=== PATIENT | female | born 1990 | race Caucasian/White ===

== ENCOUNTER 2020-03-20 02:45 | Emergency (ER) | payer MEDICAID ==
[~2020-03-20] VITALS: Ht 170.2 cm; Wt 68.0 kg
[2020-03-20 02:55] VITALS: BP 142/90
== END 2020-03-20 04:08 | disposition left against medical advice (07) ==
LOC: ER 02:47
DX: M25.511 Pain in right shoulder (principal); Z53.21 Procedure and treatment not carried out due to patient leaving prior to being seen by health care provider
CPT/HCPCS: 73030

== ENCOUNTER → 2022-05-01 | Outpatient (CLI) | payer MEDICAID ==
[2022-05-01 11:30] LABS: Basophils # (auto) 0 10 ^3/uL (0-0.2); Basophils % (auto) 0.4 % (0.0-2.0); Eosinophils # (auto) 0.1 10 ^3/uL (0-0.8); Eosinophils % (auto) 1.3 % (0.0-7.0); Hematocrit 38.7 % (36.0-46.0); Hemoglobin 13.2 g/dL (12.2-16.2); Lymphocytes # (auto) 1.5 10 ^3/uL (0.4-5.4); Lymphocytes % (auto) 20.3 % (10.0-50.0); Mean Corpuscular Volume 93.9 fL (80.0-100.0); Monocytes # (auto) 0.5 10 ^3/uL (0-1.3); Monocytes % (auto) 6.8 % (0.0-12.0); Neutrophils # (auto) 5.3 10 ^3/uL (1.6-8.6); Neutrophils % (auto) 71.2 % (37.0-80.0); Nucleated Red Blood Cells % 0.1 %; Red Blood Cells 4.12 10^6/uL (4.0-5.20); White Blood Cell 7.4 10^3/uL (4.4-10.8)
[2022-05-01 12:26] LABS: Alcohol, Urine < 3.0 mg/dL (0-10); Amphetamine Screen, Urine NEGATIVE (NEGATIVE); Barbiturate Scree,Urine NEGATIVE (NEGATIVE); Benzodiazephine Screen, Urine NEGATIVE (NEGATIVE); Cannabinoid Screen, Urine NEGATIVE (NEGATIVE); Cocaine Screen, Urine NEGATIVE (NEGATIVE); Opiate Scree,Urine NEGATIVE (NEGATIVE); Phencyclidine Screen, Urine NEGATIVE (NEGATIVE)
[2022-05-02 08:06] LABS: RPR Non Reactive (Non Reactive)
== END | disposition home or self-care (01) ==
LOC: LAB 10:55
PROVIDERS: ATTEND Obstetrics & Gynecology
DX: Z31.430 Encounter of female for testing for genetic disease carrier status for procreative management (principal); Z34.80 Encounter for supervision of other normal pregnancy, unspecified trimester; N39.0 Urinary tract infection, site not specified
CPT/HCPCS: 36415; 80307; 83036; 84112; 84144; 84702; 85025; 86592; 86703; 86762; 86765; 86850; 86900; 86901; 87086; 87088; 87186; 87340

== ENCOUNTER → 2022-09-03 | Outpatient (CLI) | payer MEDICAID ==
[2022-09-03 09:19] LABS: Basophils # (auto) 0 10 ^3/uL (0-0.2); Basophils % (auto) 0.3 % (0.0-2.0); Eosinophils # (auto) 0.2 10 ^3/uL (0-0.8); Eosinophils % (auto) 2.2 % (0.0-7.0); Hematocrit 36.6 % (36.0-46.0); Hemoglobin 12.2 g/dL (12.2-16.2); Lymphocytes # (auto) 2.3 10 ^3/uL (0.4-5.4); Lymphocytes % (auto) 27.7 % (10.0-50.0); Mean Corpuscular Hemoglobin 31.4 pg (28.0-32.0); Mean Corpuscular Hgb Conc. 33.4 g/dL (32.0-36.0); Monocytes # (auto) 0.7 10 ^3/uL (0-1.3); Monocytes % (auto) 8.1 % (0.0-12.0); Neutrophils # (auto) 5.1 10 ^3/uL (1.6-8.6); Neutrophils % (auto) 61.7 % (37.0-80.0); Red Blood Cells 3.89 10^6/uL (4.0-5.20); Red Cell Distribution Width 13.6 % (11.8-14.3); White Blood Cell 8.2 10^3/uL (4.4-10.8)
== END | disposition home or self-care (01) ==
LOC: LAB 09:06
PROVIDERS: ATTEND Obstetrics & Gynecology
DX: Z34.80 Encounter for supervision of other normal pregnancy, unspecified trimester (principal); Z3A.00 Weeks of gestation of pregnancy not specified
CPT/HCPCS: 36415; 82951; 85025

== ENCOUNTER → 2022-10-30 | Outpatient (CLI) | payer MEDICAID ==
[2022-10-30 11:47] LABS: Basophils # (auto) 0 10 ^3/uL (0-0.2); Basophils % (auto) 0.5 % (0.0-2.0); Eosinophils # (auto) 0.1 10 ^3/uL (0-0.8); Eosinophils % (auto) 1.4 % (0.0-7.0); Monocytes # (auto) 0.9 10 ^3/uL (0-1.3); Monocytes % (auto) 11.3 % (0.0-12.0); Neutrophils # (auto) 6.1 10 ^3/uL (1.6-8.6)
[2022-10-30 11:51] LABS: Hematocrit 39.1 % (36.0-46.0); Hemoglobin 13.2 g/dL (12.2-16.2); Mean Corpuscular Hemoglobin 31.6 pg (28.0-32.0); Mean Corpuscular Hgb Conc. 33.7 g/dL (32.0-36.0); Mean Corpuscular Volume 93.7 fL (80.0-100.0); Neutrophils % (auto) 74.8 % (37.0-80.0); Red Blood Cells 4.18 10^6/uL (4.0-5.20); Red Cell Distribution Width 13.5 % (11.8-14.3); White Blood Cell 8.1 10^3/uL (4.4-10.8)
[2022-10-31 08:07] LABS: RPR Non Reactive (Non Reactive)
== END | disposition home or self-care (01) ==
LOC: LAB 11:21
PROVIDERS: ATTEND Obstetrics & Gynecology
DX: Z34.80 Encounter for supervision of other normal pregnancy, unspecified trimester (principal); Z3A.00 Weeks of gestation of pregnancy not specified
CPT/HCPCS: 36415; 84112; 85025; 86592

== ENCOUNTER 2022-11-27 17:37 | Inpatient (IN) | payer MEDICAID ==
[~2022-11-27] VITALS: Ht 170.2 cm; Wt 96.6 kg
[2022-11-27] MEDS ORDERED: BUTORPHANOL TARTRATE 2 MG/1 ML VIAL IV PRN ×2 (18:30)
[2022-11-27] MEDS ORDERED: PROMETHAZINE HCL 25 MG/ML 1ML IV PRN (18:30)
[2022-11-27] MEDS ORDERED: LACTATED RINGER'S 1,000 ML IV SCH (18:30)
[2022-11-27] MEDS ORDERED: PHISODERM TOP SOLN 240ML BTL TOP PRN (18:30)
[2022-11-27] MEDS ORDERED: DERMOPLAST 60ML BOTTLE TOP PRN (18:30)
[2022-11-27] MEDS ORDERED: LIDOCAINE 2%HCL (LOCAL ANESTH.) INJ 20ML MDV IJ PRN (18:30)
[2022-11-27] MEDS ORDERED: LACT. RINGERS/OXYTOCIN 20UNITS 500 ML IV ONE ×2 (19:00→19:30)
[2022-11-27] MEDS: WITCH HAZEL-GLYCERIN PAD TOP PRN (19:06)
[2022-11-27 19:13] LABS: Basophils # (auto) 0 10 ^3/uL (0-0.2); Basophils % (auto) 0.1 % (0.0-2.0); Eosinophils # (auto) 0.1 10 ^3/uL (0-0.8); Eosinophils % (auto) 0.5 % (0.0-7.0); Hematocrit 38.3 % (36.0-46.0); Hemoglobin 13.1 g/dL (12.2-16.2); Lymphocytes # (auto) 1.2 10 ^3/uL (0.4-5.4); Lymphocytes % (auto) 8.6 % (10.0-50.0); Mean Corpuscular Hemoglobin 31.7 pg (28.0-32.0); Mean Corpuscular Hgb Conc. 34.3 g/dL (32.0-36.0); Mean Corpuscular Volume 92.5 fL (80.0-100.0); Monocytes # (auto) 0.9 10 ^3/uL (0-1.3); Monocytes % (auto) 6.4 % (0.0-12.0); Neutrophils # (auto) 11.8 10 ^3/uL (1.6-8.6); Neutrophils % (auto) 84.4 % (37.0-80.0); Red Blood Cells 4.15 10^6/uL (4.0-5.20); Red Cell Distribution Width 13.8 % (11.8-14.3)
[2022-11-27 19:27] LABS: INR 0.9 (0.9-1.15); Partial Thromboplastin Time 26.5 sec (24.6-33.4)
[2022-11-27 19:30] LABS: Albumin 2.7 g/dL (3.4-5.0); Calcium 8.7 mg/dL (8.5-10.1); Potassium 3.2 mmol/L (3.5-5.1)
[2022-11-27 19:33] LABS: BUN/Creatinine Ratio 18.9; Bilirubin, Total 0.3 mg/dL (0.2-1.0); Total Protein 6.2 g/dL (6.4-8.2)
[2022-11-27] MEDS ORDERED: ePHEDrine SULFATE 50 MG/ML AMP IV ONE (20:00)
[2022-11-27] MEDS ORDERED: NALOXONE HCL 0.4 MG/ML VIAL IV ONE (20:00)
[2022-11-27] MEDS ORDERED: fentaNYL CITRATE 100 MCG/2 ML VL IV ONE (20:00)
[2022-11-27] MEDS ORDERED: LIDOCAINE HCL 2 %PF INJ 10ML AMP IJ ONE (20:00)
[2022-11-27] MEDS ORDERED: ROPIVACAINE HCL 200 ML EPI SCH (20:00)
[2022-11-27] MEDS ORDERED: Lidocaine W-Epinephrine 1.5%-1:200,000 INJ 10ml Vial ONE (20:04)
[2022-11-27] MEDS ORDERED: METHYLERGONOVINE MALEATE 0.2 MG/ML AMP IM ONE (20:39)
[2022-11-27] MEDS ORDERED: miSOPROStol 100 mcg TAB ONE (20:39)
[2022-11-27] MEDS ORDERED: ONDANSETRON HCL 4 MG/2 ML VIAL ONE (20:46)
[2022-11-27] MEDS ORDERED: CARBOPROST TROMETHAMINE 250 MCG/1ML VIAL IM ONE (20:51)
[2022-11-27] MEDS ORDERED: METHYLERGONOVINE MALEATE 0.2 MG/ML AMP IM PRN (21:00)
[2022-11-27] MEDS ORDERED: ONDANSETRON HCL 4 MG/2 ML VIAL IV PRN (21:00)
[2022-11-27] MEDS ORDERED: CARBOPROST TROMETHAMINE 250 MCG/1ML VIAL IM PRN (21:00)
[2022-11-27] MEDS ORDERED: ONDANSETRON ODT 4 MG TAB PO PRN (21:00)
[2022-11-27] MEDS ORDERED: miSOPROStol 100 mcg TAB SL PRN (21:00)
[2022-11-27] MEDS: ACETAMINOPHEN 325 MG TAB PO PRN (21:19)
[2022-11-27] MEDS ORDERED: DIPHENOXYLATE W/ATROPINE 2.5 MG TAB PO SCH (21:45)
[2022-11-27] MEDS: DOCUSATE SOD 100 MG CAP PO SCH (22:00)
[2022-11-27 22:09] LABS: Urine Bacteria NONE SEEN /hpf (None Seen); Urine Blood 3+ /uL (Negative); Urine Specific Gravity 1.019 (1.001-1.035); Urine WBC 2 /hpf (0 - 5)
[2022-11-27 22:13] LABS: Alcohol, Urine < 3.0 mg/dL (0-10); Amphetamine Screen, Urine NEGATIVE (NEGATIVE); Barbiturate Scree,Urine NEGATIVE (NEGATIVE); Benzodiazephine Screen, Urine NEGATIVE (NEGATIVE); Cannabinoid Screen, Urine NEGATIVE (NEGATIVE); Cocaine Screen, Urine NEGATIVE (NEGATIVE); Opiate Scree,Urine NEGATIVE (NEGATIVE); Phencyclidine Screen, Urine NEGATIVE (NEGATIVE)
[2022-11-27 23:00] VITALS: BP 140/84
[2022-11-28] MEDS: IBUPROFEN 800 MG TAB PO PRN ×2 (00:36→13:40)
[2022-11-28 02:50] VITALS: BP 119/68
[2022-11-28] MEDS: ACETAMINOPHEN 325 MG TAB PO PRN ×2 (07:05→21:09)
[2022-11-28 07:30] VITALS: BP 119/76
[2022-11-28 11:15] VITALS: BP 98/59
[2022-11-28 14:45] VITALS: BP 105/55
[2022-11-28 19:30] VITALS: BP 108/71
[2022-11-28] MEDS ORDERED: DOCU100C10 PO (19:38)
[2022-11-28] MEDS ORDERED: IBUP800T26 PO (19:38)
[2022-11-28] MEDS ORDERED: ACET325T10 PO (19:38)
[2022-11-28] MEDS ORDERED: PREN-96 PO (19:38)
[2022-11-28] MEDS: DOCUSATE SOD 100 MG CAP PO SCH (22:03)
[2022-11-28 22:46] VITALS: BP 115/59
[2022-11-29] MEDS: IBUPROFEN 800 MG TAB PO PRN ×3 (00:03→16:13)
[2022-11-29 03:15] VITALS: BP 103/64
[2022-11-29] MEDS ORDERED: TETANUS-DIPTH-ACEL PERTUSSIS 0.5ML SYR Tdap IM ONE (06:30)
[2022-11-29 06:48] LABS: Basophils # (auto) 0 10 ^3/uL (0-0.2); Basophils % (auto) 0.3 % (0.0-2.0); Eosinophils # (auto) 0.2 10 ^3/uL (0-0.8); Eosinophils % (auto) 1.6 % (0.0-7.0); Hematocrit 31.1 % (36.0-46.0); Hemoglobin 10.5 g/dL (12.2-16.2); Lymphocytes # (auto) 2.4 10 ^3/uL (0.4-5.4); Lymphocytes % (auto) 22.6 % (10.0-50.0); Mean Corpuscular Hemoglobin 32.1 pg (28.0-32.0); Mean Corpuscular Hgb Conc. 33.8 g/dL (32.0-36.0); Mean Corpuscular Volume 95.1 fL (80.0-100.0); Monocytes # (auto) 0.7 10 ^3/uL (0-1.3); Monocytes % (auto) 6.5 % (0.0-12.0); Neutrophils # (auto) 7.5 10 ^3/uL (1.6-8.6); Nucleated Red Blood Cells % 0.1 %; Red Blood Cells 3.27 10^6/uL (4.0-5.20); Red Cell Distribution Width 14.1 % (11.8-14.3); White Blood Cell 10.8 10^3/uL (4.4-10.8)
[2022-11-29 07:30] VITALS: BP 110/56
[2022-11-29 08:06] LABS: RPR Non Reactive (Non Reactive)
[2022-11-29 11:00] VITALS: BP 109/51
[2022-11-29] MEDS: ACETAMINOPHEN 325 MG TAB PO PRN (11:36)
[2022-11-29 15:00] VITALS: BP 110/55
[2022-11-29] MEDS: WITCH HAZEL-GLYCERIN PAD TOP PRN (16:13)
== END 2022-11-29 17:05 | disposition home or self-care (01) | DRG 560 ==
LOC: INTOOBSV 17:37 → LDRP 17:37 → UNDOADMOB 17:37 → OBSVTOIN 17:37 → LDRP 17:57 → UNDODISOB 11-29 17:05
PROVIDERS: ADMIT Obstetrics & Gynecology; ATTEND Obstetrics & Gynecology
PROC: 10E0XZZ Delivery of Products of Conception, External Approach (ICD-10-PCS; principal; 2022-11-27)
PROC: 0UQMXZZ Repair Vulva, External Approach (ICD-10-PCS; 2022-11-27)
DX: O69.81X0 Labor and delivery complicated by cord around neck, without compression, not applicable or unspecified (principal); Z37.0 Single live birth; R71.0 Precipitous drop in hematocrit; O99.344 Other mental disorders complicating childbirth; F43.20 Adjustment disorder, unspecified; O62.2 Other uterine inertia; O71.82 Other specified trauma to perineum and vulva; Z20.822 Contact with and (suspected) exposure to COVID-19; Z3A.39 39 weeks gestation of pregnancy
CPT/HCPCS: 36415; 59025; 59409; 80053; 80307; 81001; 81002; 85025; 85610; 85730; 86592; 86850; 86900; 86901; 87426; 90715; 94760; 96360; 96361; 96365; 96366; 96372; G0378; J2405; J2590